=== PATIENT | female | born 1935 | race Caucasian/White ===

== ENCOUNTER 2016-02-19 16:10 | Inpatient (IN) | payer MEDICARE ==
[2016-02-19] MEDS ORDERED: HYDROmorphone 1 MG/ML 1 ML SYRINGE IVP PRN (16:28)
[2016-02-19] MEDS ORDERED: TEMAZEPAM 15 MG CAP PO PRN (16:28)
[2016-02-19] MEDS ORDERED: PROCHLORPERAZINE SUPPOSITORY 25 MG SUPP RECTAL PRN (16:28)
[2016-02-19] MEDS ORDERED: hydrOXYzine PAMOATE 25 MG CAP PO PRN (16:28)
[2016-02-19] MEDS ORDERED: SENNOSIDES-DOCUSATE SODIUM 1 EACH TAB PO PRN (16:28)
[2016-02-19] MEDS ORDERED: METOCLOPRAMIDE 5 MG/ML 2 ML VIAL IVP PRN (16:28)
[2016-02-19] MEDS ORDERED: HYDROcodone/APAP 5-325MG 1 EACH TAB PO PRN ×2 (16:28)
[2016-02-19] MEDS ORDERED: ONDANSETRON 4 MG/2 ML VIAL IVP PRN (16:28)
[2016-02-19 17:29] LABS: Basophils # (A) 0.1 k/uL (0-0.2); Basophils % (A) 1 %; CH 30.2; CHCM 32.6; Eosinophils # (A) 0.3 k/uL (0-0.7); Eosinophils % (A) 5 %; HCT 37.4 % (34.0-46.0); HDW 2.82; HGB 11.9 gm/dL (11.4-16.0); Luc # (Auto) 0.09; Luc % (Auto) 1; Lymphocytes # (A) 1.3 k/uL (1.0-4.8); Lymphocytes % (A) 19 %; MCH 29.6 pg (25.0-35.0); MCHC 31.8 g/dL (31.0-37.0); MCV 93.2 fL (80.0-100.0); Mean Platelet Volume 7.4; Monocytes # (A) 0.3 k/uL (0-1.0); Monocytes % (A) 5 %; Neutrophils # (A) 4.7 k/uL (1.3-7.7); Neutrophils % (A) 69 %; RBC 4.01 m/uL (3.80-5.40); RDW 14.1 % (11.5-15.5); WBC 6.9 k/uL (3.8-10.6); WBC (Perox) 7.44
--- NOTE | 2016-02-19 17:40 | P.HPOR ---
History of Present Illness H&P Date: 02/19/16 Chief Complaint: leg pain redness Patient is a direct admit today per Dr. Asher for ongoing right anterior lower leg pain, swelling and erythema. She fell down a few weeks ago and hit the front of her right leg. She has developed progressive redness and swelling at the front of the right lower leg that has not improved. She denies numbness, tingling or weakness. She denies calf pain, chest pain, shortness of breath. She has no other complaints. Review of Systems All systems: negative (leg pain) Medications and Allergies Allergies Allergy/AdvReac Type Severity Reaction Status Date / Time codeine Allergy Swelling Verified 02/19/16 16:50 Physical Examination Inspection reveal edema and erythema across the anterior aspect of the right lower extremity. There is no joint involvement. The skin is moderately warm to touch. No evidence of necrosis. There are no draining wounds. Neuro status intact with motor and sensation throughout. Vascular status intact with 2+ DP pulses and less than 2 sec cap refill.Cald is soft and nontender. Results Xrays from office show no fractures, lesions or gas. Assessment and Plan (1) Cellulitis of right leg Narrative/Plan: We will start her IV Cleocin, Elevate extremity, pain management, wound care, and consult Infectious Disease for recommendations. Continue medical management and DVT prophylaxis. Will monitor daily. Status: Acute Time with Patient: Less than 30
[2016-02-19 17:42] LABS: ALT 34 U/L (9-52); AST 22 U/L (14-36); Alkaline Phosphatase 63 U/L (38-126); Anion Gap 8 mmol/L; Blood Urea Nitrogen 14 mg/dL (7-17); Calcium 8.9 mg/dL (8.4-10.2); Carbon Dioxide 27 mmol/L (22-30); Chloride 99 mmol/L (98-107); Glucose 91 mg/dL (74-99); Non-African American GFR(MDRD) >60 (>60 ml/min/1.73 sqM); Potassium 4.1 mmol/L (3.5-5.1); Sodium 134 mmol/L (137-145); Total Bilirubin 0.4 mg/dL (0.2-1.3); Total Protein 5.9 g/dL (6.3-8.2)
[2016-02-19] MEDS: HYDROmorphone 1 MG/ML 1 ML SYRINGE IVP PRN ×2 (17:48→21:58)
[2016-02-19] MEDS: CLINDAMYCIN 900 MG in DEXTROSE 5% IN WATER 50 ML IVPB SCH ×4 (17:50→22:57)
[2016-02-19] MEDS ORDERED: guaiFENesin-Coden 100-10MG/5ML 10 ML CUP PO PRN (18:41)
[2016-02-19] MEDS: diphenhydrAMINE 25 MG CAP PO PRN (20:08)
[2016-02-19] MEDS: PRIMIDONE 50 MG TAB PO SCH (20:08)
[2016-02-19] MEDS ORDERED: IV VANCOMYCIN PER PHARMACY 1 EACH MISC MISCELLANE PRN (20:29)
[2016-02-19] MEDS ORDERED: NON-FORMULARY DRUG (Milnacipran Hcl [Savella] 100 MG) PO SCH (21:00)
[2016-02-19] MEDS: VANCOMYCIN 1,500 MG in SODIUM CHLORIDE 0.9% 250 ML IVPB SCH (23:52)
[2016-02-20] MEDS: HYDROmorphone 1 MG/ML 1 ML SYRINGE IVP PRN ×5 (03:26→18:20)
[2016-02-20] MEDS: LIOTHYRONINE SODIUM 5 MCG TAB PO SCH ×2 (05:29→16:05)
[2016-02-20] MEDS: CLINDAMYCIN 900 MG in DEXTROSE 5% IN WATER 50 ML IVPB SCH ×4 (08:13→16:03)
[2016-02-20] MEDS: HEPARIN SODIUM,PORCINE 5,000 UNIT/ML 1 ML VIAL SQ SCH ×2 (08:13→22:09)
[2016-02-20] MEDS: PANTOPRAZOLE 40 MG TABLET PO SCH (08:13)
[2016-02-20] MEDS: VERAPAMIL SR 120 MG TABLET.ER PO SCH (08:14)
--- NOTE | 2016-02-20 08:39 | CONS ---
DATE OF CONSULTATION: 02/19/2016 REASON FOR CONSULTATION: Advice regarding chronic obstructive pulmonary disease, other multiple medical issues requested by Dr. Asher. HISTORY OF PRESENT ILLNESS: This 80 -year-old woman with past medical history of chronic obstructive pulmonary disease, fibromyalgia, GERD, hypertension, history of pneumonia, sleep apnea, hypothyroidism, aortic aneurysm, adenoidectomy, CVA, being followed by Dr. Blackmon in the outpatient setting was noted to have cellulitis 3 weeks duration. The pain and swelling was noted in the lower part of the right leg which was not feeling better. The patient had multiple course of antibiotics Keflex and because of lack of improvement, patient came to [facility] and admitted to the hospital for further evaluation and treatment. There is no history of any fever, rigors or chills. No history of headache, loss of consciousness or seizures. The patient came to the hospital as a direct admit by Dr. Asher. The patient is complaining of right leg pain. Past medical history of asthma, COPD, history of fibromyalgia, GERD, hypertension, sleep apnea, history of hypothyroidism, aortic aneurysm, multiple surgeries. Medications prior to admission include: 1. Cheratussin syrup 10 mL q.6h p.r.n. 2. Verapamil 120 mg p.o. daily. 3. Mysoline 25 mg q.h.s. 5. Cytomel 5 mcg as directed and 10 mcg Monday, Monday, Monday. 6. Xopenex HFA 2 puffs q.4 p.r.n. 7. Atrovent 0.5 q.6 p.r.n. 8. [place] 5 mg t.i.d. p.r.n. ALLERGIES: SHELLFISH. CODEINE. FAMILY HISTORY: History of CVA and TIA, diabetes mellitus and myocardial infarction in the family. SOCIAL HISTORY: No history of smoking. Occasional alcohol intake. REVIEW OF SYSTEMS: ENT: No diminished hearing or vision. CARDIOVASCULAR: No angina RESPIRATORY: No cough. GI: No nausea. : No dysuria. Nervous system: No numbness, weakness. ALLERGY/IMMUNOLOGY: No asthma or hayfever. MUSCULOSKELETAL: As mentioned earlier. HEMATOLOGY/ONCOLOGY: No history of anemia. ENDOCRINE: As mentioned earlier. CONSTITUTIONAL: As mentioned earlier. DERMATOLOGY: Negative. RHEUMATOLOGY: Negative. PSYCHIATRY: As mentioned earlier. PHYSICAL EXAMINATION: The patient is alert and oriented times three. Pulse 78. Blood pressure 190/91, respiratory rate 20. Temperature 97.7. Pulse ox 94% on room air. HEENT: Conjunctivae normal. Oral mucosa moist. NECK: No jugular venous distention. No carotid bruit. No lymph node enlargement. CARDIOVASCULAR: S1, S2 muffled. No S3, no S4. Respiratory: Breath sounds diminished at the bases. A few scattered rhonchi and crackles. ABDOMEN: Soft, obese, nontender. No mass palpable. LEGS: Right leg swelling and edema and tenderness present. Indurated mass also present in the right guadalupe area severely tender. Pulses felt normally. Nervous system: Higher function as mentioned earlier. Cranial nerves 2 thru 12 grossly intact. Moves all 4 limbs. No focal motor or sensory deficits. LYMPHATICS: No lymph nodes palpable in the neck, axillae or groin. SKIN: No ulcer, rash or bleeding. LABS: CBC within normal limits. Sodium 134. ASSESSMENT: 1. Acute cellulitis and possible abscess of the right guadalupe with failure of outpatient treatment. 2. Hyponatremia. 3. History of asthma, chronic obstructive pulmonary disease. 4. History of fibromyalgia. 5. History of gastroesophageal reflux disease. 6. Hypertension. 7. History of pneumonia. 8. History of sleep apnea. 9. History hypothyroidism. 10. History of aortic aneurysm. 11. History of polymyalgia. 12. History of back surgery and the lower leg weakness and pain. 13. History of degenerative joint disease. 14. History of adenoidectomy. 15. History of cataracts. 16. History of rectocele and cystocele. 17. Mild hyponatremia. 18. FULL CODE. This 80 -year-old woman presented with multiple complex medical issues, we will monitor the patient closely. Continue the current medications. Continue symptomatic treatment. Pain medications. Broad spectrum IV antibiotics. I would recommend vancomycin and continue to monitor. Follow with infectious disease and as well as orthopedic surgery. The home medications will be continued. Cultures will be obtained. Prognosis guarded because of multiple complex medical issues. Further recommendations to follow. A copy of dictation forwarded to Dr. Blackmon who is the primary physician. [facility]
[2016-02-20 08:51] LABS: Basophils % (A) 1 %; CH 29.5; CHCM 32.4; Eosinophils # (A) 0.3 k/uL (0-0.7); Eosinophils % (A) 4 %; HCT 38.1 % (34.0-46.0); HDW 2.82; HGB 12.2 gm/dL (11.4-16.0); Luc # (Auto) 0.21; Luc % (Auto) 3; Lymphocytes % (A) 16 %; MCH 29.1 pg (25.0-35.0); MCHC 31.9 g/dL (31.0-37.0); MCV 91.2 fL (80.0-100.0); Mean Platelet Volume 6.5; Monocytes # (A) 0.3 k/uL (0-1.0); Monocytes % (A) 5 %; Neutrophils # (A) 4.6 k/uL (1.3-7.7); Neutrophils % (A) 71 %; RBC 4.18 m/uL (3.80-5.40); RDW 13.7 % (11.5-15.5); WBC 6.4 k/uL (3.8-10.6); WBC (Perox) 6.92
[2016-02-20 09:04] LABS: Anion Gap 8 mmol/L; Blood Urea Nitrogen 11 mg/dL (7-17); Calcium 8.9 mg/dL (8.4-10.2); Carbon Dioxide 28 mmol/L (22-30); Chloride 100 mmol/L (98-107); Glucose 100 mg/dL (74-99); Non-African American GFR(MDRD) >60 (>60 ml/min/1.73 sqM); Potassium 4.2 mmol/L (3.5-5.1); Sodium 136 mmol/L (137-145)
[2016-02-20] MEDS: IPRATROPIUM 0.5 MG/2.5 ML NEBU INHALATION PRN ×3 (11:36→19:54)
[2016-02-20] MEDS: LEVALBUTEROL NEB (CONC) 1.25 MG/0.5 ML AMP INHALATION PRN ×3 (11:36→19:54)
--- NOTE | 2016-02-20 12:44 | XR ---
EXAMINATION TYPE: XR chest 1V portable DATE OF EXAM: 02/20/2016 11:21 AM CLINICAL HISTORY: Presurgical study TECHNIQUE: Single AP portable upright view of the chest is obtained. COMPARISON: None. FINDINGS: Exam is slightly suboptimal secondary to portable technique and patient's large body habit us. Elevated right hemidiaphragm is present. There is no suspicious focal air space opacity, pleural effusion, or pneumothorax is clearly seen bilaterally. Cardiac silhouette size is felt upper limits o f normal with atherosclerotic thoracic aorta. Osseous structures are somewhat demineralized. IMPRESSION: No suspicious acute pulmonary process identified.
--- NOTE | 2016-02-20 16:04 | P.PN ---
Subjective Principal diagnosis: Right leg Cellulitis Patient was admitted yesterday for right lower leg cellulitis. She has been receiving IV antibiotics. She has some tenderness at her anterior lower leg. She denies any new complaints today. She feels it may be improved some. She denies numbness, tingling or calf pain. ROS is negative for fever, chills, chest pain, shortness of breath or other. Objective - Vital Signs Vital signs: Vital Signs Temp 97.8 F 02/20/16 07:00 Pulse 80 02/20/16 15:44 Resp 22 02/20/16 07:00 BP 147/72 02/20/16 07:00 Pulse Ox 94 L 02/20/16 07:00 Intake & Output 02/19/16 02/20/16 02/20/16 18:59 06:59 18:59 Intake Total 100 290 Balance 100 290 Weight 87 kg Intake: IV 50 Clindamycin 900 mg In 50 Dextrose 5% in Water 50 ml @ 100 mls/hr IVPB Q8HR SEAN Rx#:[id number] Oral 100 240 Other: Voiding Method Toilet Toilet # Voids 1 3 # Bowel Movements 0 - Exam Right lower extremity reveals an erythematous demarcation at the anterior lower leg. There is tenderness and warmth. The calf is soft and nontender. There are no joint effusions or joint pain. She can dorsiflex and plantar flex without difficulty. Sensation to light touch is intact throughout the lower extremity. 2 + dorsalis pedis pulse and less than 2 sec cap refill is present. - Constitutional General appearance: Present: no acute distress - Psychiatric Psychiatric: Present: A&O x's 3, appropriate affect, intact judgment & insight - Labs CBC & Chem 7: 02/20/16 08:15 02/20/16 08:15 Labs: Abnormal Lab Results - Last 24 Hours (Table) 02/19/16 02/20/16 Range/Units 17:14 08:15 Sodium 134 L 136 L (137-145) mmol/L Glucose 100 H (74-99) mg/dL Total Protein 5.9 L (6.3-8.2) g/dL Assessment and Plan (1) Cellulitis of right leg Narrative/Plan: Dr. Asher has seen the patient this morning. He has recommended performing and I and D tomorrow, 02/21/2016 at 8 am. The procedure risks and benefits have been reviewed with the patient. She understands and desires to proceed. She is NPO after midnight. We have requested Pre-op clearance. She will continue IV antibiotics, pain management and DVT prophylaxis. Status: Acute Time with Patient: Less than 30
[2016-02-20] MEDS: VANCOMYCIN 1,500 MG in SODIUM CHLORIDE 0.9% 250 ML IVPB SCH (16:36)
[2016-02-20 18:26] LABS: Appearance,Urine Clear (Clear); Bilirubin,Urine Negative (Negative); Glucose,Urine (UA) Negative (Negative); Ketones,Urine Negative (Negative); Leukocyte Esterase,Urine Negative (Negative); Nitrite,Urine Negative (Negative); PH, Urine 5.5 (5.0-8.0); Protein,Urine Negative (Negative); Specific Gravity,Urine 1.008 (1.001-1.035); UA Billing (MACRO vs. MICRO) CHEM; Urobilinogen,Urine <2.0 mg/dL (<2.0)
--- NOTE | 2016-02-20 18:35 | P.CONS ---
History of Present Illness - Reason for Consult Consult date: 02/20/16 - Chief Complaint Fall with injury to the right pretibial area - History of Present Illness Very pleasant 80-year-old woman who has multiple medical troubles that includes benign tremors and polymyalgia rheumatica has not done well with prior steroid therapy relates she is going to her friend's house and fell on a set of steps that her [place] in [place]. She had some discomfort to the area but was able to make it through the evening. When she arrived home that night she was shocked at the extensive swelling and bruising she had developed the pretibial area to the right leg. She sought care with her primary care physician. She's been given several courses of antibiotic therapy some local care. Despite that the site did not improve. She's had severe pain throughout this entire time frame. She pushed for the holidays but became much more miserable and was seen by her primary care physician and sent to orthopedics. Was seen by orthopedics and admitted to hospital directly for the surgical incision drainage of the but appears to be infected hematoma over the right pretibial area. It with at the infectious diseases consultation was requested. Patient relates that she is quite miserable. She is having great difficulty with pain and discomfort at that site. She's had some fever and chill. She feels poorly overall. And since she's been sick are benign tremors have become worse and she has been ill. She is concerned of how poorly she is doing. Review of Systems HEENT:Denies headache or acute visual change. Denies sinus or mouth discomforts. Denies neck stiffness or pain. Denies significant oral cavity pain. Denies difficulty on swallowing. Lungs: But she has been having worsening shortness of breath and has had follow- up and workup regarding that. Cardiovascular: Denies significant chest pain, chest wall pain, orthopnea, she over does have dyspnea on exertion.. Gastrointestinal: Denies nausea, vomiting, diarrhea, constipation, hematemesis, melena, hematochezia. No no significant change of bowel habit noticed. Musculoskeletal: denies significant myalgias or arthralgias. No new joint swelling. Denies new back pain. Skin: Trauma to the right pretibial area as above Neuro: Chronic tremors of worsened Psychiatric:Denies anxiety or depression. Endocrine: Denies significant fatigue, denies significant weight loss or weight gain. Past Medical History Past Medical History: Asthma, Cancer, COPD, Fibromyalgia, GERD/Reflux, Hypertension, Pneumonia, Sleep Apnea/CPAP/BIPAP, Thyroid Disorder Additional Past Medical History / Comment(s): AORTIC ANUERYSM,BENIGN TREMORS, MIGRAINES, POLYMYALGIA(DID STEROID [place]), INCONT OF URINE WEARS A PAD, SJIN CANCER (DASAL CELL), VARICOSE VEINS,SLEEP APNEA STATED USES O2 3.5 LITERS AT NIGHT History of Any Multi-Drug Resistant Organisms: None Reported Past Surgical History: Adenoidectomy, Appendectomy, Bladder Surgery, Breast Surgery, Heart Catheterization, Hysterectomy, Tonsillectomy Additional Past Surgical History / Comment(s): PASTOR CATARACTS(LENS IMPLANTS), 2 BACK FUSIONS, RT ARM PLAT/SCREWS, BENIGN BREST LUMPS REMOVED, X5 D&C'S, RECTOCEL /CYSTOCELE Past Anesthesia/Blood Transfusion Reactions: Postoperative Nausea & Vomiting ( PONV) Past Psychological History: No Psychological Hx Reported Additional Psychological History / Comment(s): and lives in the family home with the . Retired. No international travel. Pet dog. No change in the home Smoking Status: Never smoker Past Alcohol Use History: Occasional Past Drug Use History: None Reported - Past Family History Mother Family Medical History: CVA/TIA, Diabetes Mellitus, Myocardial Infarction ([place]) Father Family Medical History: CVA/TIA, Myocardial Infarction ([place]) Medications and Allergies Home Medications and Allergies Comment(s): Current Medications Acetaminophen/Hydrocodone Bitart (Wilson 5-325) 1 each PO TID PRN PRN Reason: Pain Alprazolam (Xanax) 0.25 mg PO TID PRN PRN Reason: Anxiety Diphenhydramine HCl (Benadryl) 25 mg PO HS PRN PRN Reason: Insomnia Last Admin: 02/19/16 20:08 Dose: 25 mg Guaifenesin/Codeine Phosphate (Robitussin Ac) 10 ml PO Q6HR PRN PRN Reason: Cough Heparin Sodium (Porcine) (Heparin) 5,000 unit SQ Q12HR SEAN Last Admin: 02/20/16 08:13 Dose: 5,000 unit Hydromorphone HCl (Dilaudid) 0.125 mg IVP Q3HR PRN PRN Reason: Pain Scale 1 to 3 Hydromorphone HCl (Dilaudid) 0.25 mg IVP Q3HR PRN PRN Reason: Pain Scale 4 to 6 Hydromorphone HCl (Dilaudid) 0.5 mg IVP Q3HR PRN PRN Reason: Pain Scale 7 to 10 Last Admin: 02/20/16 18:20 Dose: 0.5 mg Hydroxyzine Pamoate (Vistaril) 25 mg PO Q6HR PRN PRN Reason: Nausea/Anxiety Clindamycin Phosphate 900 mg/ (Dextrose/Water) 56 mls @ 100 mls/hr IVPB Q8HR [facility] Last Admin: 02/20/16 16:03 Dose: 100 mls/hr Vancomycin HCl 1,500 mg/ (Sodium Chloride) 250 mls @ 125 mls/hr IVPB Q16H [facility] Last Admin: 02/20/16 16:36 Dose: 125 mls/hr Ipratropium [place] (Atrovent Nebulized) 0.5 mg INHALATION RT-Q6H PRN PRN Reason: Shortness Of Breath Last Admin: 02/20/16 15:38 Dose: 0.5 mg Levalbuterol HCl (Xopenex Nebulized (Conc)) 1.25 mg INHALATION RT-Q4H PRN PRN Reason: Shortness Of Breath Last Admin: 02/20/16 15:38 Dose: 1.25 mg Liothyronine Sodium (Cytomel) 5 mcg PO [facility] Last Admin: 02/20/16 16:05 Dose: 5 mcg Liothyronine Sodium (Cytomel) 10 mcg PO [facility] Liothyronine Sodium (Cytomel) 5 mcg PO [facility] Last Admin: 02/20/16 05:29 Dose: 5 mcg Metoclopramide HCl (Reglan) 10 mg IVP Q6HR PRN PRN Reason: Nausea And Vomiting Non-Formulary Medication (Milnacipran Hcl [Savella]) 100 mg PO BID [facility] Ondansetron HCl (Zofran) 4 mg IVP DAILY PRN PRN Reason: Nausea And Vomiting Pantoprazole Sodium (Protonix) 40 mg PO AC[facility]BRKFST [facility] Last Admin: 02/20/16 08:13 Dose: 40 mg Primidone (Mysoline) 25 mg PO [facility] Last Admin: 02/19/16 20:08 Dose: 25 mg Prochlorperazine Maleate (Compazine) 25 mg RECTAL BID PRN PRN Reason: Nausea And Vomiting Senna/Docusate Sodium (Senokot-S) 2 each PO HS PRN PRN Reason: Constipation Last Admin: 02/20/16 08:18 Dose: 2 each Temazepam (Restoril) 15 mg PO HS PRN PRN Reason: Insomnia Verapamil HCl (Isoptin Sr) 120 mg PO DAILY [facility] Last Admin: 02/20/16 08:14 Dose: 120 mg Home Medications Medication Instructions Recorded Confirmed Type HYDROcodone/APAP 5-325MG [Wilson 1 tab PO TID PRN 02/19/16 02/19/16 History 5-325] Ipratropium Nebulized [Atrovent 0.5 mg INHALATION RT-Q6H PRN 02/19/16 02/19/16 History Nebulized] Levalbuterol Tartrate [Xopenex Hfa 2 puff INHALATION RT-Q4H PRN 02/19/16 History Inhaler] Liothyronine Sodium [Cytomel] 5 mcg PO DIRECTED 02/19/16 02/19/16 History Liothyronine Sodium [Cytomel] 10 mcg PO MOWEFR 02/19/16 02/19/16 History Milnacipran HCl [Savella] 100 mg PO BID 02/19/16 02/19/16 History Primidone [Mysoline] 25 mg PO HS 02/19/16 02/19/16 History Verapamil HCl 120 mg PO DAILY 02/19/16 02/19/16 History guaiFENesin/CODEINE PHOSPHATE 10 ml PO Q6HR PRN 02/19/16 02/19/16 History [Cheratussin AC Syrup] Allergies Allergy/AdvReac Type Severity Reaction Status Date / Time shellfish derived [Shellfish] Allergy Swelling Verified 02/19/16 17:39 codeine AdvReac Abdominal Verified 02/19/16 17:39 Pain Physical Exam Vitals: Vital Signs Temp Pulse Pulse Resp BP BP Pulse Ox 02/20/16 15:44 80 02/20/16 15:40 76 02/20/16 15:00 97.0 F L 83 20 151/83 95 02/20/16 11:45 88 02/20/16 11:36 88 02/20/16 07:00 97.8 F 78 22 147/72 94 L 02/20/16 00:00 16 02/19/16 23:00 97.6 F 84 16 146/78 92 L Intake and Output 02/20/16 02/20/16 02/20/16 06:59 14:59 22:59 Intake Total 100 530 Balance 100 530 Intake: IV 50 Clindamycin 900 mg In 50 Dextrose 5% in Water 50 ml @ 100 mls/hr IVPB Q8HR [facility] Rx#:[id number] Oral 100 480 Other: Voiding Method Toilet # Voids 1 3 3 # Bowel Movements 0 Pleasant 80-year-old woman who presents to Hospital complaining of severe pain to the right pretibial area. HEENT: Anicteric conjunctiva are pink and moist nasal mucosa grossly intact without significant lesions, there is no thrush. Neck: The neck is supple without significant lymphadenopathy or thyromegaly. Lungs: Good bilateral air entry without significant crackles or wheezing. There is no significant bronchial sounds. There is no egophony or dullness. Heart: Regular rate and rhythm with an audible S1-S2, no S3 no S4. There is no significant murmur click or rub, PMI was nondisplaced. Abdomen: Positive bowel sounds soft and nontender without palpable masses or organomegaly. There was no guarding or rebound. Extremities: The upper extremities have excellent pulses they are symmetric, no significant petechiae or telangiectasia. No splinter hemorrhages were noted. The left lower extremity is intact without abnormalities. Evidence of any significant lesions. Does have some mild varicose veins. The right lower extremities shows evidence of the extensive lesion the pretibial area. There is a palpable hematoma that is very tender. With a large area of surrounding erythema that is also quite tender. She relates that she had extensive ecchymosis that completely resolved except right in the hematoma area on the pretibial site. There is mild ascending discomfort. There is mild ascending erythema. She has some distinct tenderness to the right inguinal lymph node. No other abnormal lymph nodes are noted. Neuro: Awake alert oriented to person place and time. She has distinct resting tremor. Upon questioning relates that she does drink some alcohol it may get a bit better. Results CBC & Chem 7: 02/20/16 08:15 02/20/16 08:15 Labs: Abnormal Lab Results - Last 24 Hours (Table) 02/20/16 Range/Units 08:15 Sodium 136 L (137-145) mmol/L Glucose 100 H (74-99) mg/dL Laboratory Results WBC 6.4 k/uL (3.8-10.6) 02/20/16 08:15 RBC 4.18 m/uL (3.80-5.40) 02/20/16 08:15 Hgb 12.2 gm/dL (11.4-16.0) 02/20/16 08:15 Hct 38.1 % (34.0-46.0) 02/20/16 08:15 MCV 91.2 fL (80.0-100.0) 02/20/16 08:15 MCH 29.1 pg (25.0-35.0) 02/20/16 08:15 MCHC 31.9 g/dL (31.0-37.0) 02/20/16 08:15 RDW 13.7 % (11.5-15.5) 02/20/16 08:15 Plt Count 286 k/uL (150-450) 02/20/16 08:15 Neutrophils % 71 % 02/20/16 08:15 Lymphocytes % 16 % 02/20/16 08:15 Monocytes % 5 % 02/20/16 08:15 Eosinophils % 4 % 02/20/16 08:15 Basophils % 1 % 02/20/16 08:15 Neutrophils # 4.6 k/uL (1.3-7.7) 02/20/16 08:15 Lymphocytes # 1.0 k/uL (1.0-4.8) 02/20/16 08:15 Monocytes # 0.3 k/uL (0-1.0) 02/20/16 08:15 Eosinophils # 0.3 k/uL (0-0.7) 02/20/16 08:15 Basophils # 0.0 k/uL (0-0.2) 02/20/16 08:15 Sodium 136 mmol/L (137-145) L 02/20/16 08:15 Potassium 4.2 mmol/L (3.5-5.1) 02/20/16 08:15 Chloride 100 mmol/L (98-107) 02/20/16 08:15 Carbon Dioxide 28 mmol/L (22-30) 02/20/16 08:15 Anion Gap 8 mmol/L 02/20/16 08:15 BUN 11 mg/dL (7-17) 02/20/16 08:15 Creatinine 0.60 mg/dL (0.52-1.04) 02/20/16 08:15 Est GFR (MDRD) Af Amer >60 (>60 ml/min/1.73 sqM) 02/20/16 08:15 Est GFR (MDRD) Non-Af >60 (>60 ml/min/1.73 sqM) 02/20/16 08:15 Glucose 100 mg/dL (74-99) H 02/20/16 08:15 Calcium 8.9 mg/dL (8.4-10.2) 02/20/16 08:15 Total Bilirubin 0.4 mg/dL (0.2-1.3) 02/19/16 17:14 AST 22 U/L (14-36) 02/19/16 17:14 ALT 34 U/L (9-52) 02/19/16 17:14 Alkaline Phosphatase 63 U/L (38-126) 02/19/16 17:14 Total Protein 5.9 g/dL (6.3-8.2) L 02/19/16 17:14 Albumin 3.8 g/dL (3.5-5.0) 02/19/16 17:14 Urine Color Light Yellow 02/20/16 18:05 Urine Appearance Clear (Clear) 02/20/16 18:05 Urine pH 5.5 (5.0-8.0) 02/20/16 18:05 Ur Specific [place] 1.008 (1.001-1.035) 02/20/16 18:05 Urine Protein Negative (Negative) 02/20/16 18:05 Urine Glucose (UA) Negative (Negative) 02/20/16 18:05 Urine Ketones Negative (Negative) 02/20/16 18:05 Urine Blood Negative (Negative) 02/20/16 18:05 Urine Nitrate Negative (Negative) 02/20/16 18:05 Urine Bilirubin Negative (Negative) 02/20/16 18:05 Urine Urobilinogen <2.0 mg/dL (<2.0) 02/20/16 18:05 Ur Leukocyte Esterase Negative (Negative) 02/20/16 18:05 Assessment and Plan (1) Cellulitis of right leg Narrative/Plan: 80-year-old female presents to Hospital with significant pain and swelling to the right pretibial area status post trauma. She fell on steps and developed an extensive hematoma. This is now 3 weeks ago. There has not been improving and appears to be grossly infected this point in time with a cellulitis and possibly infected hematoma. Because of that she is taking to the operating room tomorrow for incision and drainage to the site. The postoperative findings will be helpful to determine the best possible wound care. It is large enough she may do well for negative pressure therapy system. Otherwise either a silver dressing or similar could be utilized. For antibiotic therapy given her failure to date with utilize vancomycin therapy for now. Deep cultures may be helpful to further guide antibiotic therapy is because the outpatient setting. Pain control appears to be adequate. As far as her tremor she is somewhat concerned about them because it seems to be affecting her overall quality of life may be relating to her falls. Because of this she would do well to have further extensive neurological evaluation. The [facility] would be helpful for another opinion. Status: Acute (2) Traumatic hematoma of right lower leg with infection Status: Acute
--- NOTE | 2016-02-20 20:38 | PN ---
DATE OF SERVICE: 02/20/2016 This 80 -year-old woman who was admitted to the hospital with significant cellulitis and severe pain is being closely monitored. No chest pain. No palpitations. Orthopedic surgery is planning an incision and drainage. No fever. No cough. No shortness of breath. No hematochezia or melena. On exam, alert and oriented x3. Pulse 78, blood pressure 147/72. Respirations 22, temperature 97.8. Pulse ox 94% on room air. HEENT: Conjunctivae normal. NECK: No jugular venous distention. CARDIOVASCULAR: S1, S2 muffled. RESPIRATORY: Breath sounds diminished at the bases. A few scattered rhonchi. No crackles. ABDOMEN: Soft, nontender. LEGS: Edema and swelling and erythema present. CENTRAL NERVOUS SYSTEM: No focal deficits. LABS: Labs are CBC within normal limits, sodium 136. ASSESSMENT: 1. Acute cellulitis with possible of the right guadalupe with failure of outpatient treatment. 2. Hyponatremia, possibly hypovolemic. 3. History of asthma, chronic obstructive pulmonary disease. 4. History of fibromyalgia. 5. History of gastroesophageal reflux disease. 6. Hypertension. 7. History of pneumonia. 8. History of sleep apnea. 9. History of hypothyroidism. 10. History of aortic aneurysm. 11. History of polymyalgia rheumatica. 12. History of back surgery with lower leg weakness and pain. 13. History of degenerative joint disease. 14. History of adenoidectomy. 15. History of cataracts. 16. History of rectocele and cystocele. 17. Mild hyponatremia. 18. FULL CODE. RECOMMENDATIONS AND DISCUSSION: This 74-year-old woman who presented with multiple complex medical issues, we will monitor the patient closely. Continue the current medications. Continue symptomatic treatment. Otherwise, at this time, I would recommend continue the current medications and symptomatic treatment. Otherwise I also recommend IV antibiotics, incision and drainage. Closely follow. DVT prophylaxis. See orders for further details. Further recommendations to follow. Medically stable. Cleared for surgery.
[2016-02-20] MEDS: PRIMIDONE 50 MG TAB PO SCH (22:09)
[2016-02-20] MEDS: diphenhydrAMINE 25 MG CAP PO PRN (22:09)
[2016-02-21] MEDS: HYDROmorphone 1 MG/ML 1 ML SYRINGE IVP PRN ×7 (01:02→21:49)
[2016-02-21] MEDS ORDERED: LEVALBUTEROL NEB (CONC) 1.25 MG/0.5 ML AMP INHALATION PRN (04:01)
[2016-02-21] MEDS ORDERED: IPRATROPIUM 0.5 MG/2.5 ML NEBU INHALATION PRN (04:01)
[2016-02-21] MEDS: LIOTHYRONINE SODIUM 5 MCG TAB PO SCH ×2 (06:06→17:36)
[2016-02-21] MEDS ORDERED: IV FLUID CONTINUATION 1,000 ML IV ONE (07:52)
[2016-02-21] MEDS ORDERED: CLINDAMYCIN 600 MG in SODIUM CHLORIDE 0.9% 1,000 ML IRRIGATION ONE (07:52)
[2016-02-21] MEDS ORDERED: PROPOFOL 10 MG/ML 20 ML VIAL IV ONE (08:00)
[2016-02-21] MEDS ORDERED: fentaNYL (PF) 50 MCG/ML 2 ML AMP ONE (08:00)
[2016-02-21] MEDS ORDERED: LIDOCAINE 1% INJ 10MG/ML (20 ML MDV) ONE (08:00)
[2016-02-21] MEDS ORDERED: MIDAZOLAM 2 MG/2 ML VIAL ONE (08:00)
[2016-02-21] MEDS: PANTOPRAZOLE 40 MG TABLET PO SCH (08:16)
[2016-02-21] MEDS: HEPARIN SODIUM,PORCINE 5,000 UNIT/ML 1 ML VIAL SQ SCH ×2 (08:17→21:33)
[2016-02-21] MEDS: HYDROmorphone 1 MG/ML 1 ML SYRINGE IVP ONE ×4 (08:47→08:58)
[2016-02-21] MEDS: IPRATROPIUM 0.5 MG/2.5 ML NEBU INHALATION SCH ×4 (09:50→20:33)
[2016-02-21] MEDS: LEVALBUTEROL NEB (CONC) 1.25 MG/0.5 ML AMP INHALATION SCH ×4 (09:50→20:33)
[2016-02-21] MEDS: VANCOMYCIN 1,500 MG in SODIUM CHLORIDE 0.9% 250 ML IVPB SCH (10:48)
[2016-02-21] MEDS: VERAPAMIL SR 120 MG TABLET.ER PO SCH (10:49)
[2016-02-21 12:38] LABS: Anion Gap 8 mmol/L; Blood Urea Nitrogen 11 mg/dL (7-17); Calcium 8.2 mg/dL (8.4-10.2); Carbon Dioxide 29 mmol/L (22-30); Chloride 103 mmol/L (98-107); Glucose 93 mg/dL (74-99); Non-African American GFR(MDRD) >60 (>60 ml/min/1.73 sqM); Potassium 4.3 mmol/L (3.5-5.1); Sodium 140 mmol/L (137-145)
[2016-02-21] MEDS: PRIMIDONE 50 MG TAB PO SCH (21:33)
[2016-02-21] MEDS: diphenhydrAMINE 25 MG CAP PO PRN (21:33)
[2016-02-21] MEDS: ALPRAZolam 0.25 MG TAB PO PRN (21:49)
[2016-02-21] MEDS ORDERED: VANCOMYCIN TROUGH DUE 1 EACH MISC MISCELLANE ONE (23:00)
[2016-02-22] MEDS: HYDROmorphone 1 MG/ML 1 ML SYRINGE IVP PRN ×7 (01:33→22:35)
[2016-02-22] MEDS: VANCOMYCIN 1,500 MG in SODIUM CHLORIDE 0.9% 250 ML IVPB SCH ×2 (03:07→16:28)
[2016-02-22] MEDS ORDERED: LIOTHYRONINE SODIUM 5 MCG TAB PO SCH (06:30)
[2016-02-22] MEDS: IPRATROPIUM 0.5 MG/2.5 ML NEBU INHALATION SCH ×3 (07:45→21:29)
[2016-02-22] MEDS: LEVALBUTEROL NEB (CONC) 1.25 MG/0.5 ML AMP INHALATION SCH ×3 (07:45→21:28)
[2016-02-22] MEDS: HEPARIN SODIUM,PORCINE 5,000 UNIT/ML 1 ML VIAL SQ SCH ×2 (08:46→19:56)
[2016-02-22] MEDS: VERAPAMIL SR 120 MG TABLET.ER PO SCH (08:46)
[2016-02-22] MEDS: PANTOPRAZOLE 40 MG TABLET PO SCH (08:46)
[2016-02-22 08:54] LABS: Anion Gap 11 mmol/L; Blood Urea Nitrogen 7 mg/dL (7-17); Calcium 8.7 mg/dL (8.4-10.2); Carbon Dioxide 24 mmol/L (22-30); Chloride 103 mmol/L (98-107); Glucose 105 mg/dL (74-99); Non-African American GFR(MDRD) >60 (>60 ml/min/1.73 sqM); Potassium 4.3 mmol/L (3.5-5.1); Sodium 138 mmol/L (137-145)
--- NOTE | 2016-02-22 10:22 | US ---
EXAMINATION TYPE: US venous doppler duplex LE RT DATE OF EXAM: 02/22/2016 9:58 AM COMPARISON: NONE CLINICAL HISTORY: right leg swelling noted by patient after suffering fall 3 weeks prior; is now post right lower leg evacuation of hematoma . SIDE PERFORMED: Right VESSELS IMAGED: Common Femoral Vein Deep Femoral Vein Greater Saphenous Vein * Femoral Vein Popliteal Vein Small Saphenous Vein * Proximal Calf Veins (* superficial vessels) Findings: Right Leg: Normal compressibility and spontaneous flow noted. IMPRESSION: 1. No diagnostic evidence of DVT.
--- NOTE | 2016-02-22 12:07 | P.PN ---
Subjective Principal diagnosis: Right leg Cellulitis Patient seen at bedside today. She is POD #1 from I & D of right leg. She has no new complaints. She feels her pain is improved and leg feels better. She denies numbness, tingling or calf pain. ROS is negative for fever, chills, chest pain, shortness of breath or other. Objective - Vital Signs Vital signs: Vital Signs Temp 97.9 F 02/22/16 07:00 Pulse 88 02/22/16 08:40 Resp 18 02/22/16 07:00 BP 138/70 02/22/16 07:00 Pulse Ox 97 02/22/16 07:00 Intake & Output 02/21/16 02/22/16 02/22/16 18:59 06:59 18:59 Intake Total 692 200 200 Output Total 25 Balance 667 200 200 Intake: IV 452 Oral 240 200 200 Output: Estimated Blood Loss 25 Other: Voiding Method Toilet Bedside Commode Bedside Commode # Voids 2 1 # Bowel Movements 0 - Exam Right lower extremity post op surgical wounds benign. No drainage through bandage. The calf is soft and nontender. There are no joint effusions or joint pain. She can dorsiflex and plantar flex without difficulty. Sensation to light touch is intact throughout the lower extremity. 2+ dorsalis pedis pulse and less than 2 sec cap refill is present. - Constitutional General appearance: Present: no acute distress - Psychiatric Psychiatric: Present: A&O x's 3, appropriate affect, intact judgment & insight - Labs CBC & Chem 7: 02/20/16 08:15 02/22/16 08:16 Labs: Abnormal Lab Results - Last 24 Hours (Table) 02/21/16 02/22/16 Range/Units 11:46 08:16 Creatinine 0.50 L (0.52-1.04) mg/dL Glucose 105 H (74-99) mg/dL Calcium 8.2 L (8.4-10.2) mg/dL Microbiology - Last 24 Hours (Table) 02/21/16 08:18 Gram Stain - Preliminary Leg - Right Wound Culture - Preliminary 02/21/16 08:18 Anaerobic Culture - Preliminary Leg - Right Assessment and Plan (1) Cellulitis of right leg Narrative/Plan: She will continue IV antibiotics, pain management and DVT prophylaxis. Wound cultures and labs pending. ID and IM following. Continue to monitor progress Status: Acute Time with Patient: Less than 30
--- NOTE | 2016-02-22 15:23 | PN ---
DATE OF SERVICE: 02/21/2016 This 80-year-old woman was admitted with acute cellulitis of the right guadalupe also had incision and drainage by Orthopedic Surgery with evacuation of some hematoma. No chest pain, no palpitation. No fever. On exam, alert and oriented x2. Pulse 81, blood pressure 123/59, respirations 16, temperature 98.8, pulse ox 97% on 4 liters. HEENT: Conjunctivae normal. NECK: No jugular venous distention. CARDIOVASCULAR: S1 and S2, muffled. RESPIRATORY: Breath sounds diminished at the bases. A few scattered rhonchi and crackles. ABDOMEN: Soft, nontender. LEGS: Status post right leg incision and drainage. NERVOUS SYSTEM: No focal deficits. LABS: CBC within normal limits. Sodium 140. ASSESSMENT: 1. Acute cellulitis of the right guadalupe with failure of outpatient treatment. 2. Traumatic hematoma of the right guadalupe status post evacuation and drainage. 3. Hyponatremia possibly hypovolemic. 4. History of asthma and chronic obstructive pulmonary disease. 5. History of fibromyalgia. 6. History of gastroesophageal reflux disease. 7. Hypertension. 8. History of pneumonia. 9. History of sleep apnea. 10. History of hypothyroidism. 11. History of aortic aneurysm. 12. History of polymyalgia rheumatica. 13. History of back surgery with left lower leg weakness and pain. 14. History of degenerative joint disease. 15. History of adenoidectomy. 16. History of cataracts. 17. History of rectocele and cystocele. 18. FULL CODE. RECOMMENDATIONS AND DISCUSSION: In this 80-year-old woman who presented with multiple complex medical issues, we will monitor the patient closely. Continue the current medications. continue symptomatic treatment. Otherwise, continue with antibiotics. Closely follow with Orthopedic Surgery. DVT prophylaxis. Further recommendations to follow.
--- NOTE | 2016-02-22 18:35 | P.PN ---
Subjective Date of service 02/22/2016 Progress note being dictated for Dr. Atwood. Interval history: This is a 80-year-old female admitted with acute cellulitis of right guadalupe status post fall, failed outpatient treatment and multiple other medical issues.. Yesterday underwent I&D of hematoma, tolerated well. Maintained on vancomycin. Edema improving, Pain better controlled. Doppler negative for DVT. Good diet intake, no nausea or vomiting. Denies chest pain, palpitation. Afebrile, cultures pending. Objective - Vital Signs Vital signs: Vital Signs Temp 97.9 F 02/22/16 07:00 Pulse 88 02/22/16 08:40 Resp 18 02/22/16 07:00 BP 138/70 02/22/16 07:00 Pulse Ox 97 02/22/16 07:00 Intake & Output 02/21/16 02/22/16 02/22/16 18:59 06:59 18:59 Intake Total 692 200 200 Output Total 25 Balance 667 200 200 Intake: IV 452 Oral 240 200 200 Output: Estimated Blood Loss 25 Other: Voiding Method Toilet Bedside Commode Bedside Commode # Voids 2 1 # Bowel Movements 0 - Exam PHYSICAL EXAM: VITAL SIGNS: As above GENERAL: [Sitting up at side of bed, no acute distress] HEENT: [Pupils equal conjunctiva normal.] NECK: [Supple, no JVD] RESPIRATORY EFFORT:[Normal, LUNGS: [bilateral bases diminished, occasional scattered crackles with rhonchi] CARDIOVASCULAR[regular S1 and S2,] GI: [Abdomen soft, nontender, positive bowel sounds.] PSYCH: [Alert and oriented -3, mood and affect normal.] SKIN: Right leg soft, dressing clean dry and intact, extremity warm, positive DP pulse, Mely drains 2 present, NEURO: No focal deficits Microbiology 02/21/16 08:18 Leg - Right Gram Stain - Preliminary 02/21/16 08:18 Leg - Right Wound Culture - Preliminary 02/21/16 08:18 Leg - Right Anaerobic Culture - Preliminary - Labs CBC & Chem 7: 02/20/16 08:15 02/22/16 08:16 Labs: Abnormal Lab Results - Last 24 Hours (Table) 02/21/16 02/22/16 Range/Units 11:46 08:16 Creatinine 0.50 L (0.52-1.04) mg/dL Glucose 105 H (74-99) mg/dL Calcium 8.2 L (8.4-10.2) mg/dL Microbiology - Last 24 Hours (Table) 02/21/16 08:18 Gram Stain - Preliminary Leg - Right Wound Culture - Preliminary 02/21/16 08:18 Anaerobic Culture - Preliminary Leg - Right Assessment and Plan Plan: 1. Acute cellulitis of the right guadalupe with failure of outpatient treatment. 2. [Traumatic hematoma of the right guadalupe status post evacuation and drainage]. 3. [Hyponatremia possibly hypovolemic]. 4. [Chronic intermittent asthma and COPD]. 5. History of fibromyalgia []. 6. [Gastroesophageal reflux disease]. 7. [Hypertension]. 8. Sleep apnea 9. Hypothyroidism 10. Aortic aneurysm,history of 11. Polymyalgia rheumatica 12. Chronic back pain history of back surgery with left lower leg weakness 13. Degenerative joint disease New Plan: Continue on current medication regime, antibiotics, monitoring and symptomatic treatment. DVT prophylaxis. Cultures pending .Follow closely with orthopedics. Increase ambulation as tolerated. Discharge planning in progress for tomorrow. The impression and plan of care has been dictated as directed. : I performed a H&P examination of this patient and discussed the same with the dictator. I agree with the dictator's note. Any additional findings/opinions/ etc. will be noted.
[2016-02-22] MEDS: PRIMIDONE 50 MG TAB PO SCH (19:54)
[2016-02-22] MEDS: ALPRAZolam 0.25 MG TAB PO PRN (19:55)
[2016-02-22] MEDS: diphenhydrAMINE 25 MG CAP PO PRN (19:55)
[2016-02-23] MEDS: HYDROcodone/APAP 5-325MG 1 EACH TAB PO PRN ×2 (06:25→13:12)
[2016-02-23] MEDS: LIOTHYRONINE SODIUM 5 MCG TAB PO SCH (06:25)
[2016-02-23 07:11] VITALS: BP 164/78; RESP 16; TEMP 98.7
[2016-02-23] MEDS: IPRATROPIUM 0.5 MG/2.5 ML NEBU INHALATION SCH ×2 (07:34→12:45)
[2016-02-23] MEDS: LEVALBUTEROL NEB (CONC) 1.25 MG/0.5 ML AMP INHALATION SCH ×2 (07:34→12:45)
[2016-02-23] MEDS: VERAPAMIL SR 120 MG TABLET.ER PO SCH (09:14)
[2016-02-23] MEDS: HEPARIN SODIUM,PORCINE 5,000 UNIT/ML 1 ML VIAL SQ SCH (09:14)
[2016-02-23] MEDS: PANTOPRAZOLE 40 MG TABLET PO SCH (09:14)
--- NOTE | 2016-02-23 09:55 | PN ---
DATE OF SERVICE: 02/22/2016 This 80-year-old woman who was admitted with acute cellulitis is improving. The patient had incision and drainage. The venous showed no deep venous thrombosis. Seen and evaluated the patient along with nurse practitioner. Please refer to the nurse practitioner notes and impression documented as a scribe for further information. Further recommendations to follow.
[2016-02-23 09:57] LABS: Anion Gap 13 mmol/L; Blood Urea Nitrogen 9 mg/dL (7-17); Calcium 8.8 mg/dL (8.4-10.2); Carbon Dioxide 25 mmol/L (22-30); Chloride 101 mmol/L (98-107); Glucose 138 mg/dL (74-99); Non-African American GFR(MDRD) >60 (>60 ml/min/1.73 sqM); Potassium 4.4 mmol/L (3.5-5.1); Sodium 139 mmol/L (137-145)
[2016-02-23] MEDS: VANCOMYCIN 1,500 MG in SODIUM CHLORIDE 0.9% 250 ML IVPB SCH (10:02)
--- NOTE | 2016-02-23 10:10 | P.DS ---
Providers Date of admission: 02/19/16 16:28 Expected date of discharge: 02/23/16 Attending physician: Luis Asher Consults: 02/19/16 16:28 Consult Physician Urgent Consulting Provider: Denzel Hanson Consult Reason/Comments: eval and treat right leg cellulitis Do you want consulting provider notified?: Yes 02/19/16 17:40 Consult Physician Routine Consulting Provider: Carla Drew Consult Reason/Comments: medical management Do you want consulting provider notified?: Yes 02/20/16 09:53 Consult Physician Routine Consulting Provider: Carla Drew Consult Reason/Comments: pre op clearance Do you want consulting provider notified?: Yes [facility] (1) Traumatic hematoma of right lower leg with infection Status: Acute (2) Cellulitis of right leg Status: Acute Priority: Medium Hospital Course: The patient is a 80 y/o female that was admitted directly from our office on Monday02/19/16 for right lower leg cellulitis that failed outpatient antibiotics. The patient fell a few weeks ago and developed redness and swelling to the anterior aspect of her right leg. Her primary care physician placed her on Keflex but the redness and swelling continued to worsen. She was referred to the orthopedic office for possible surgical intervention. The patient was admitted for IV antibiotic therapy and infectious disease recommendations. The patient was taken to the OR on 02/21/2016 for an I&D of the right lower leg hematoma. Two drains were placed. The patient is currently receiving IV vancomycin. A doppler of the right lower extremity was obtained yesterday and was negative for DVT. Today, the patient states she is feeling better. Her pain is controlled at this time. Vital signs and labs are stable. Exam of the right lower extremity reveals edema to the lower aspect of the leg. Minimal drainage is present on the dressing. Improving erythema and swelling is present. Two hansa drains are intact without signs of infection. Neurological and circulatory status is intact. Pedal pulse 2+. The patient is orthopedically stable for discharge home today. Pertinent Studies: Laboratory Tests 02/20/16 08:15 WBC 6.4 RBC 4.18 Hgb 12.2 Hct 38.1 Patient Condition at Discharge: Stable Plan - Discharge Summary New Discharge Prescriptions: HYDROcodone/APAP 5-325MG [[place] 5-325] 1 - 2 tab PO Q6HR PRN #45 tab PRN Reason: Pain Doxycycline Monohydrate [Monodox] 100 mg PO Q12HR #20 cap Albuterol Nebulized [Ventolin Nebulized] 2.5 mg INHALATION TID #1 nebu Pantoprazole [Protonix] 40 mg PO AC-BRKFST #30 tablet.dr Diaz Medication List HYDROcodone/APAP 5-325MG [[place] 5-325] 1 tab PO TID PRN 02/19/16 [History] Levalbuterol Tartrate [Xopenex Hfa Inhaler] 2 puff INHALATION RT-Q4H PRN [History] Liothyronine Sodium [Cytomel] 5 mcg PO DIRECTED 02/19/16 [History] Liothyronine Sodium [Cytomel] 10 mcg PO MOWEFR 02/19/16 [History] Milnacipran HCl [Savella] 100 mg PO BID 02/19/16 [History] Primidone [Mysoline] 25 mg PO HS 02/19/16 [History] Verapamil HCl 120 mg PO DAILY 02/19/16 [History] guaiFENesin/CODEINE PHOSPHATE [Cheratussin AC Syrup] 10 ml PO Q6HR PRN 02/19/16 [History] Albuterol Nebulized [Ventolin Nebulized] 2.5 mg INHALATION TID #1 nebu 02/23/16 [Rx] Doxycycline Monohydrate [Monodox] 100 mg PO Q12HR #20 cap 02/23/16 [Rx] HYDROcodone/APAP 5-325MG [[place] 5-325] 1 - 2 tab PO Q6HR PRN #45 tab 02/23/16 [ Rx] Ipratropium Nebulized [Atrovent Nebulized] 0.5 mg INHALATION RT-TID nebu [Rx] Pantoprazole [Protonix] 40 mg PO AC-BRKFST #30 tablet. 02/23/16 [Rx] Sennosides-Docusate Sodium [Senokot-S] 2 each PO HS PRN #0 tab 02/23/16 [Rx] Follow up Appointment(s)/Referral(s): Luis Asher DO [Doctor of Osteopathic Medicine] - 02/25/16 10:30 am Jai Blackmon DO [Primary Care Provider] - 3 Days (Office states they cant schedule appointment for hospital discharges and that you need to call for appointment. ) Ambulatory/Diagnostic Orders: Complete Blood Count w/diff [LAB.AMB] Time Frame: 3 Days, Location: Determined By Patient Patient Instructions/Handouts: Acute Wound Care (DC) Activity/Diet/Wound Care/Special Instructions: Antibiotics as per infectious disease Change dressing daily and as needed Drains will be removed in Dr. Asher' office on , 02/25/2016 Call [facility] with any questions or concerns, Discharge Disposition: HOME SELF-CARE
[2016-02-23 12:53] VITALS: PULSE 78
--- NOTE | 2016-02-23 14:58 | PN ---
DATE OF SERVICE: 02/23/2016 This is a 80-year-old woman with a past medical history of multiple medical problems was admitted after cellulitis and evacuation of hematoma. The patient improved significantly. No chest pain, no palpitation, no fever. On exam, alert and oriented x3. Pulse is 79, blood pressure 164/78, respirations 16, temperature is 98.7, pulse ox 94% on room air. HEENT: Conjunctivae normal. NECK: No jugular venous distension. CARDIOVASCULAR SYSTEM: S1, S2, muffled. RESPIRATORY: Breath sounds diminished at the base, no rhonchi, no crackles. Abdomen is soft. EXTREMITIES: Legs status post surgery. NERVOUS SYSTEM: No focal deficits. LABS: Glucose 138. ASSESSMENT: 1. Acute cellulitis of the right guadalupe with failure of outpatient treatment. 2. Traumatic hematoma of the right guadalupe, status post evacuation and drainage. 3. Hyponatremia, possibly hypovolemic. 4. Chronic intermittent asthma and chronic obstructive pulmonary disease. 5. History of fibromyalgia. 6. History of gastroesophageal reflux disease. 7. Hypertension. 8. History of sleep apnea. 9. Hypothyroidism. 10. History of aortic aneurysm. 11. History of polymyalgia rheumatica. 12. Chronic back pain and degenerative joint disease at the left lower leg weakness. RECOMMENDATION AND DISCUSSION: In this 80-year-old woman who presented with multiple complex medical issues, will monitor the patient closely, continue with the current medication, continue with the symptomatic treatment. Otherwise, at this time resume the home medications. Closely follow with Dr. Blackmon. Further recommendations to follow.
[2016-02-23] MEDS ORDERED: IPRATROPIUM-ALBUTEROL 3 ML NEB INHALATION SCH (16:00)
--- NOTE | 2016-02-23 22:57 | P.PN ---
Subjective Principal diagnosis: Pretibial lesion Very pleasant 80-year-old woman who has multiple medical troubles that includes benign tremors and polymyalgia rheumatica has not done well with prior steroid therapy relates she is going to her friend's house and fell on a set of steps that [place]. She had some discomfort to the area but was able to make it through the evening. When she arrived home that night she was shocked at the extensive swelling and bruising she had developed the pretibial area to the right leg. She sought care with her primary care physician. She's been given several courses of antibiotic therapy some local care. Despite that the site did not improve. She's had severe pain throughout this entire time frame. She pushed for the holidays but became much more miserable and was seen by her primary care physician and sent to orthopedics. Was seen by orthopedics and admitted to hospital directly for the surgical incision drainage of the but appears to be infected hematoma over the right pretibial area. It with at the infectious diseases consultation was requested. Patient relates that she is quite miserable. She is having great difficulty with pain and discomfort at that site. She is now status post incision and drainage. She's feeling considerably better. She still somewhat anxious at the site. Of note she asks similar questions over and over and does appear to have some anxiety and dementia Objective - Vital Signs Vital signs: Vital Signs Temp 98.7 F 02/23/16 07:00 Pulse 78 02/23/16 13:03 Resp 16 02/23/16 07:00 BP 164/78 02/23/16 07:00 Pulse Ox 94 L 02/23/16 07:39 Intake & Output 02/23/16 02/23/16 02/24/16 06:59 18:59 06:59 Other: Voiding Method Bedside Commode Toilet # Voids 2 # Bowel Movements 0 - Exam Pleasant 80-year-old woman who presents to Hospital complaining of severe pain to the right pretibial area. HEENT: Anicteric conjunctiva are pink and moist nasal mucosa grossly intact without significant lesions, there is no thrush. Neck: The neck is supple without significant lymphadenopathy or thyromegaly. Lungs: Good bilateral air entry without significant crackles or wheezing. There is no significant bronchial sounds. There is no egophony or dullness. Heart: Regular rate and rhythm with an audible S1-S2, no S3 no S4. There is no significant murmur click or rub, PMI was nondisplaced. Abdomen: Positive bowel sounds soft and nontender without palpable masses or organomegaly. There was no guarding or rebound. Extremities: The upper extremities have excellent pulses they are symmetric, no significant petechiae or telangiectasia. No splinter hemorrhages were noted. The left lower extremity is intact without abnormalities. Evidence of any significant lesions. Does have some mild varicose veins. Right lower extremities shows evidence of the recent surgical intervention. The surgical incision sites are intact. [place] drain is in place. Site is still quite tender at this area. The dense erythema is almost completely resolved. No ascending erythema is noted. She relates that she had extensive ecchymosis that completely resolved except right in the hematoma area on the pretibial site. There is mild ascending discomfort. There is mild ascending erythema. She has some distinct tenderness to the right inguinal lymph node. No other abnormal lymph nodes are noted. Neuro: Awake alert oriented to person place and time. She has distinct resting tremor. Has some anxiety and is repeating questions several times indicative of some memory deficit - Labs CBC & Chem 7: 02/20/16 08:15 02/23/16 08:49 Labs: Abnormal Lab Results - Last 24 Hours (Table) 02/23/16 Range/Units 08:49 Glucose 138 H (74-99) mg/dL Microbiology - Last 24 Hours (Table) 02/21/16 08:18 Anaerobic Culture - Preliminary Leg - Right 02/21/16 08:18 Gram Stain - Final Leg - Right Wound Culture - Final Laboratory Results WBC 6.4 k/uL (3.8-10.6) 02/20/16 08:15 RBC 4.18 m/uL (3.80-5.40) 02/20/16 08:15 Hgb 12.2 gm/dL (11.4-16.0) 02/20/16 08:15 Hct 38.1 % (34.0-46.0) 02/20/16 08:15 MCV 91.2 fL (80.0-100.0) 02/20/16 08:15 MCH 29.1 pg (25.0-35.0) 02/20/16 08:15 MCHC 31.9 g/dL (31.0-37.0) 02/20/16 08:15 RDW 13.7 % (11.5-15.5) 02/20/16 08:15 Plt Count 286 k/uL (150-450) 02/20/16 08:15 Neutrophils % 71 % 02/20/16 08:15 Lymphocytes % 16 % 02/20/16 08:15 Monocytes % 5 % 02/20/16 08:15 Eosinophils % 4 % 02/20/16 08:15 Basophils % 1 % 02/20/16 08:15 Neutrophils # 4.6 k/uL (1.3-7.7) 02/20/16 08:15 Lymphocytes # 1.0 k/uL (1.0-4.8) 02/20/16 08:15 Monocytes # 0.3 k/uL (0-1.0) 02/20/16 08:15 Eosinophils # 0.3 k/uL (0-0.7) 02/20/16 08:15 Basophils # 0.0 k/uL (0-0.2) 02/20/16 08:15 Sodium 139 mmol/L (137-145) 02/23/16 08:49 Potassium 4.4 mmol/L (3.5-5.1) 02/23/16 08:49 Chloride 101 mmol/L (98-107) 02/23/16 08:49 Carbon Dioxide 25 mmol/L (22-30) 02/23/16 08:49 Anion Gap 13 mmol/L 02/23/16 08:49 BUN 9 mg/dL (7-17) 02/23/16 08:49 Creatinine 0.56 mg/dL (0.52-1.04) 02/23/16 08:49 Est GFR (MDRD) Af Amer >60 (>60 ml/min/1.73 sqM) 02/23/16 08:49 Est GFR (MDRD) Non-Af >60 (>60 ml/min/1.73 sqM) 02/23/16 08:49 Glucose 138 mg/dL (74-99) H 02/23/16 08:49 Calcium 8.8 mg/dL (8.4-10.2) 02/23/16 08:49 Total Bilirubin 0.4 mg/dL (0.2-1.3) 02/19/16 17:14 AST 22 U/L (14-36) 02/19/16 17:14 ALT 34 U/L (9-52) 02/19/16 17:14 Alkaline Phosphatase 63 U/L (38-126) 02/19/16 17:14 Total Protein 5.9 g/dL (6.3-8.2) L 02/19/16 17:14 Albumin 3.8 g/dL (3.5-5.0) 02/19/16 17:14 Urine Color Light Yellow 02/20/16 18:05 Urine Appearance Clear (Clear) 02/20/16 18:05 Urine pH 5.5 (5.0-8.0) 02/20/16 18:05 Ur Specific [place] 1.008 (1.001-1.035) 02/20/16 18:05 Urine Protein Negative (Negative) 02/20/16 18:05 Urine Glucose (UA) Negative (Negative) 02/20/16 18:05 Urine Ketones Negative (Negative) 02/20/16 18:05 Urine Blood Negative (Negative) 02/20/16 18:05 Urine Nitrate Negative (Negative) 02/20/16 18:05 Urine Bilirubin Negative (Negative) 02/20/16 18:05 Urine Urobilinogen <2.0 mg/dL (<2.0) 02/20/16 18:05 Ur Leukocyte Esterase Negative (Negative) 02/20/16 18:05 Vancomycin Trough 12.6 ug/mL 02/21/16 22:50 Microbiology 02/21/16 08:18 Leg - Right Anaerobic Culture - Preliminary 02/21/16 08:18 Leg - Right Gram Stain - Final 02/21/16 08:18 Leg - Right Wound Culture - Final Assessment and Plan (1) Cellulitis of right leg Narrative/Plan: 80-year-old female presents to Hospital with significant pain and swelling to the right pretibial area status post trauma. She fell on steps and developed an extensive hematoma. This is now 3 weeks ago. There has not been improving and appears to be grossly infected this point in time with a cellulitis and possibly infected hematoma. Because of that she is taking to the operating room tomorrow for incision and drainage to the site. The postoperative findings will be helpful to determine the best possible wound care. It is large enough she may do well for negative pressure therapy system. Otherwise either a silver dressing or similar could be utilized. For antibiotic therapy given her failure to date with utilize vancomycin therapy for now. Deep cultures may be helpful to further guide antibiotic therapy is because the outpatient setting. Pain control appears to be adequate. As far as her tremor she is somewhat concerned about them because it seems to be affecting her overall quality of life may be relating to her falls. Because of this she would do well to have further extensive neurological evaluation. The [facility] would be helpful for another opinion. She is now ready for discharge to home. Vancomycin therapy is discontinued and oral doxycycline is written. 100 mg twice per day should be utilized. She'll follow-up with orthopedics quickly if she has any further issues will follow-up with infectious disease at that point in time. Status: Acute (2) Traumatic hematoma of right lower leg with infection Status: Acute
--- NOTE | 2016-02-24 20:12 | OP ---
DATE OF SERVICE: 02/21/2016 SURGEON: KIRSTIN OSBORNE DO BASE [employer]Y HAND: None PREOPERATIVE DIAGNOSIS: Hematoma right anterior lateral tibia with cellulitis. POSTOPERATIVE DIAGNOSIS: Hematoma right anterior lateral tibia with cellulitis. OPERATION: Incision and drainage of the hematoma anterior lateral aspect of left leg with Mely drain insertion. ANESTHESIA: ESTIMATED BLOOD LOSS: SPECIMENS REMOVED: COMPLICATIONS: OPERATIVE FINDINGS: DESCRIPTION OF PROCEDURE: The patient was taken to the operating room suite and placed in supine position. General inhalation anesthesia was performed by the Department of anesthesiology. Betadine prep was carried out over the right leg. Sterile drapes applied in the usual manner. A longitudinal incision were developed over the dome of the hematoma, this was carried down to the subcutaneous tissue. The area was cultured. The hematoma was evacuated. A lateral incision was also developed over the pocket of that dissected hematoma anterior laterally. Following copious irrigation, two Mely drains were inserted. The sterile pressure dressing was applied. The patient taken to the recovery room in satisfactory postop condition. GROSS PATHOLOGY: There is evidence of unresolved hematoma with cellulitis. FERNANDO
== END 2016-02-23 14:06 | disposition home or self-care (01) | DRG 580 ==
LOC: 4MS4W 16:28
PROVIDERS: ADMIT Orthopaedic Surgery; ATTEND Orthopaedic Surgery
PROC: 0J9N0ZZ Drainage of Right Lower Leg Subcutaneous Tissue and Fascia, Open Approach (ICD-10-PCS; principal; 2016-02-21 06:56)
DX: L03.115 Cellulitis of right lower limb (principal); E87.1 Hypo-osmolality and hyponatremia; J44.9 Chronic obstructive pulmonary disease, unspecified; F03.90 Unspecified dementia, unspecified severity, without behavioral disturbance, psychotic disturbance, mood disturbance, and anxiety; S80.11XA Contusion of right lower leg, initial encounter; I10 Essential (primary) hypertension; M79.7 Fibromyalgia; K21.9 Gastro-esophageal reflux disease without esophagitis; G47.30 Sleep apnea, unspecified; E03.9 Hypothyroidism, unspecified; J45.20 Mild intermittent asthma, uncomplicated; M35.3 Polymyalgia rheumatica; M19.90 Unspecified osteoarthritis, unspecified site; F41.9 Anxiety disorder, unspecified; G25.0 Essential tremor; G43.909 Migraine, unspecified, not intractable, without status migrainosus; I83.90 Asymptomatic varicose veins of unspecified lower extremity; M54.9 Dorsalgia, unspecified; G89.29 Other chronic pain; Z86.73 Personal history of transient ischemic attack (TIA), and cerebral infarction without residual deficits; Z87.01 Personal history of pneumonia (recurrent); Z86.79 Personal history of other diseases of the circulatory system; Z96.1 Presence of intraocular lens; Z98.41 Cataract extraction status, right eye; Z98.42 Cataract extraction status, left eye; Z79.899 Other long term (current) drug therapy; W10.8XXA Fall (on) (from) other stairs and steps, initial encounter
CPT/HCPCS: 71010; 80048; 80053; 80202; 81003; 85025; 87070; 87075; 87205; 94640; 94760

== ENCOUNTER → 2016-02-25 | Outpatient (CLI) | payer MEDICARE ==
[2016-02-25 12:29] LABS: Basophils % (A) 0 %; CH 29.1; Eosinophils # (A) 0.2 k/uL (0-0.7); Eosinophils % (A) 3 %; HCT 37.9 % (34.0-46.0); HDW 2.87; HGB 12.1 gm/dL (11.4-16.0); Luc % (Auto) 2; Lymphocytes # (A) 0.9 k/uL (1.0-4.8); Lymphocytes % (A) 14 %; MCH 29.2 pg (25.0-35.0); MCHC 31.9 g/dL (31.0-37.0); MCV 91.5 fL (80.0-100.0); Mean Platelet Volume 6.5; Monocytes # (A) 0.3 k/uL (0-1.0); Monocytes % (A) 5 %; Neutrophils # (A) 4.9 k/uL (1.3-7.7); Neutrophils % (A) 76 %; RBC 4.15 m/uL (3.80-5.40); RDW 13.8 % (11.5-15.5); WBC 6.4 k/uL (3.8-10.6); WBC (Perox) 6.41
[2016-02-25 12:42] LABS: Anion Gap 10 mmol/L; Blood Urea Nitrogen 20 mg/dL (7-17); Calcium 9.1 mg/dL (8.4-10.2); Carbon Dioxide 24 mmol/L (22-30); Chloride 102 mmol/L (98-107); Glucose 93 mg/dL (74-99); Non-African American GFR(MDRD) >60 (>60 ml/min/1.73 sqM); Potassium 4.5 mmol/L (3.5-5.1); Sodium 136 mmol/L (137-145)
== END | disposition home or self-care (01) ==
LOC: LABWHC1 11:36
PROVIDERS: ATTEND Nurse Practitioner
DX: L03.90 Cellulitis, unspecified (principal)
CPT/HCPCS: 36415; 80048; 85025